=== PATIENT | male | born 1985 | race African-American/Black ===

== ENCOUNTER 2017-04-27 22:01 | Emergency (ER) | payer MEDICAID, OTHER ==
[~2017-04-27] VITALS: Ht 165.1 cm; Wt 68.0 kg
[2017-04-28 02:23] VITALS: BP 142/102
== END 2017-04-28 03:00 | disposition home or self-care (01) ==
LOC: ER 22:04
DX: G92 Toxic encephalopathy (principal); R41.82 Altered mental status, unspecified; F16.10 Hallucinogen abuse, uncomplicated; F17.210 Nicotine dependence, cigarettes, uncomplicated
CPT/HCPCS: 71045; 74022; 94761

== ENCOUNTER 2021-05-19 04:27 | Emergency (ER) | payer MEDICAID ==
[~2021-05-19] VITALS: Ht 180.3 cm; Wt 63.5 kg
[2021-05-19 05:37] LABS: Urine Bacteria NONE SEEN /hpf (None Seen); Urine Blood Negative /uL (Negative); Urine Specific Gravity 1.012 (1.001-1.035); Urine WBC 1 /hpf (0 - 3)
[2021-05-19 05:38] LABS: Amphetamine Screen, Urine NEGATIVE (NEGATIVE); Barbiturate Scree,Urine NEGATIVE (NEGATIVE); Benzodiazephine Screen, Urine NEGATIVE (NEGATIVE); Cannabinoid Screen, Urine NEGATIVE (NEGATIVE); Cocaine Screen, Urine NEGATIVE (NEGATIVE); Phencyclidine Screen, Urine POSITIVE (NEGATIVE)
[2021-05-19 05:46] LABS: Opiate Scree,Urine NEGATIVE (NEGATIVE)
[2021-05-19 07:56] LABS: Basophils # (auto) 0 10 ^3/uL (0-0.2); Basophils % (auto) 0.4 % (0.0-2.0); Eosinophils # (auto) 0.1 10 ^3/uL (0-0.8); Eosinophils % (auto) 1.1 % (0.0-7.0); Hematocrit 38.4 % (41.0-53.0); Hemoglobin 12.8 g/dL (13.5-17.5); Lymphocytes # (auto) 0.7 10 ^3/uL (0.4-5.4); Lymphocytes % (auto) 13.7 % (10.0-50.0); Mean Corpuscular Hemoglobin 29.3 pg (28.0-32.0); Mean Corpuscular Hgb Conc. 33.3 g/dL (32.0-36.0); Monocytes # (auto) 0.3 10 ^3/uL (0-1.3); Monocytes % (auto) 6.9 % (0.0-12.0); Neutrophils # (auto) 3.9 10 ^3/uL (1.6-8.6); Neutrophils % (auto) 77.9 % (37.0-80.0); Nucleated Red Blood Cells % 0.1 %; Red Blood Cells 4.37 10^6/uL (4.5-5.90); Red Cell Distribution Width 15.6 % (11.8-14.3)
[2021-05-19 08:11] LABS: Calcium 9.7 mg/dL (8.5-10.1); Chloride 99 mmol/L (98-107); Potassium 3.9 mmol/L (3.5-5.1); Sodium 134 mmol/L (136-145)
[2021-05-19] MEDS ORDERED: chlordiazePOXIDE HCL 25 MG CAP PO ONE (08:15)
[2021-05-19] MEDS ORDERED: SODIUM CHLORIDE 0.9% 1,000 ML IV ONE (08:15)
[2021-05-19] MEDS ORDERED: ONDANSETRON HCL 4 MG/2 ML VIAL IV ONE (08:15)
[2021-05-19 08:17] LABS: Alanine Aminotransferase 51 U/L (16-61); Albumin 4.6 g/dL (3.4-5.0); Alkaline Phosphatase 128 U/L (45-117); Anion Gap 7 (5-15); Aspartate Aminotransferase 178 U/L (15-37); BUN/Creatinine Ratio 9.9; Bilirubin, Total 1.1 mg/dL (0.2-1.0); Blood Alcohol < 3.0 mg/dL (0-5); Blood Urea Nitrogen 8 mg/dL (7-18); Carbon Dioxide 28 mmol/L (21-32); GFR African American 139 mL/min; GFR Non-African American 115 mL/min; Glucose 95 mg/dL (74-106); Magnesium 2.2 mg/dL (1.6-2.6); Total Protein 8.1 g/dL (6.4-8.2)
[2021-05-19] MEDS ORDERED: OMEP-434 PO (10:27)
[2021-05-19] MEDS ORDERED: GABA300C10 PO (10:27)
[2021-05-19] MEDS ORDERED: PROP20TA73 PO (10:27)
[2021-05-19 12:50] VITALS: BP 160/97
== END 2021-05-19 13:06 | disposition home or self-care (01) ==
LOC: ER 04:27
DX: F10.239 Alcohol dependence with withdrawal, unspecified (principal); F17.210 Nicotine dependence, cigarettes, uncomplicated; R41.82 Altered mental status, unspecified; Z20.822 Contact with and (suspected) exposure to COVID-19; Y90.8 Blood alcohol level of 240 mg/100 ml or more
CPT/HCPCS: 36415; 70450; 80053; 80307; 80320; 81001; 83735; 85025; 87426; 96361; 96374; 99285; J2405; J7030